=== PATIENT | female | born 1985 ===

== ENCOUNTER 2019-01-03 13:36 | Outpatient (CLI) | payer OTHER ==
[~2019-01-03] VITALS: Ht 160 cm; Wt 68.0 kg
== END 2019-01-03 14:00 | disposition home or self-care (01) ==
LOC: OFIC 805 13:36
DX: J30.89 Other allergic rhinitis (principal); R09.81 Nasal congestion

== ENCOUNTER 2019-03-14 14:44 | Outpatient (CLI) | payer OTHER ==
[~2019-03-14] VITALS: Ht 152.4 cm; Wt 68.0 kg
== END 2019-03-14 15:00 | disposition home or self-care (01) ==
LOC: OFIC 805 14:44
DX: R09.81 Nasal congestion (principal); J30.89 Other allergic rhinitis; H61.23 Impacted cerumen, bilateral